=== PATIENT | female | born 1960 | race African-American/Black ===

== ENCOUNTER 2021-12-16 12:27 | Emergency (ER) | payer OTHER ==
[~2021-12-16] VITALS: Ht 149.9 cm; Wt 54.0 kg
[2021-12-16] MEDS ORDERED: ACETAMINOPHEN 325MG TABLET PO ONE (12:45)
[2021-12-16 13:32] VITALS: BP 149/67
== END 2021-12-16 13:34 | disposition home or self-care (01) ==
LOC: ER 12:27
DX: I10 Essential (primary) hypertension (principal); Z91.14 Patient's other noncompliance with medication regimen
CPT/HCPCS: 99282

== ENCOUNTER 2023-01-30 10:29 | Emergency (ER) | payer OTHER ==
[~2023-01-30] VITALS: Ht 147.3 cm; Wt 55.0 kg
[2023-01-30] MEDS ORDERED: IBUPROFEN 400MG TABLET PO ONE (13:15)
[2023-01-30] MEDS ORDERED: ACETAMINOPHEN 325MG TABLET PO ONE (13:15)
[2023-01-30] MEDS ORDERED: LIDOCAINE 5% PATCH TOP SCH (13:15)
[2023-01-30 13:35] LABS: CLARITY URINE CLOUDY (CLEAR); COLOR URINE DARK YELLOW (YELLOW); KETONES URINE TRACE (NEGATIVE); LEUKOCYTE ESTERASE URINE TRACE (NEGATIVE); NITRITE URINE NEGATIVE (NEGATIVE); OCCULT BLOOD URINE NEGATIVE (NEGATIVE); PH URINE 5.5 (4.5-8.0); PROTEIN URINE TRACE (NEGATIVE); SPECIFIC GRAVITY URINE 1.024 (1.005-1.030); UROBILINOGEN URINE >8.0 E.U./dL (0.2-1.0)
[2023-01-30 14:50] LABS: CHLORIDE 114 mEq/L (98-107)
[2023-01-30 16:05] LABS: BASOPHILS % 0.5 % (0.0-2.0); EOSINOPHILS % 0.9 % (0.0-5.0); HEMATOCRIT. 39.6 % (36.0-48.0); HEMOGLOBIN. 13.3 g/dL (12.0-16.0); LYMPHOCYTES % 22.2 % (20.0-50.0); MEAN CORPUSCULAR HEMOGLOBIN 31.3 pg (28.0-32.0); MEAN CORPUSCULAR VOLUME 93.2 fL (81.0-99.0); MEAN PLATELET VOLUME 9.2 fl (7.4-10.4); MONOCYTES % 10.9 % (2.0-8.0); NEUTROPHILS % 65.5 % (40.0-76.0); PLATELET 140 x1000/uL (130-400); RED BLOOD CELL COUNT 4.25 mill/uL (4.2-5.4); RED CELL DISTRIBUTION WIDTH 13.9 % (11.6-14.6)
[2023-01-30] MEDS ORDERED: DEXT 5%/0.9% NACL 1,000 ML IV SCH (16:45)
[2023-01-30 17:19] VITALS: BP 148/53
[2023-01-30] MEDS ORDERED: ONDA4TAB50 MT (18:44)
[2023-01-30] MEDS ORDERED: ACET-2708 MT (18:44)
== END 2023-01-30 18:55 | disposition home or self-care (01) ==
LOC: ER 10:29
DX: M54.59 Other low back pain (principal); R10.9 Unspecified abdominal pain; I10 Essential (primary) hypertension; K83.8 Other specified diseases of biliary tract
CPT/HCPCS: 36415; 74181; 76705; 80053; 81003; 82977; 83690; 85025; 99284; Z7610

== ENCOUNTER 2024-11-09 10:56 | Emergency (ER) | payer MEDICAID, OTHER ==
[~2024-11-09] VITALS: Ht 144.8 cm; Wt 56.0 kg
[~2024-11-09 10:56] MED LIST: ACET-2708 MT; ONDA4TAB50 MT
[2024-11-09 11:12] VITALS: O2SAT 98
[2024-11-09] MEDS ORDERED: ACET-2708 MT (14:18)
[2024-11-09] MEDS: ACETAMINOPHEN 325MG TABLET ONE (14:35)
[2024-11-09] MEDS: ACETAMINOPHEN 325MG TABLET PO ONE (14:40)
[2024-11-09 14:42] VITALS: BP 122/58; PULSE 84; RESP 16; TEMP 36.83628; O2SAT 98
== END 2024-11-09 14:43 | disposition home or self-care (01) ==
LOC: ER 10:56
DX: M25.531 Pain in right wrist (principal)
CPT/HCPCS: 73030; 73110; 99284; Z7610; A4565

== ENCOUNTER 2025-02-22 10:57 | Emergency (ER) | payer MEDICAID, OTHER ==
[~2025-02-22] VITALS: Ht 147.3 cm; Wt 56.0 kg
[2025-02-22] MEDS: DEXAMETHASONE 4MG TABLET PO ONE (12:54)
[2025-02-22] MEDS: IPRATROPIUM BROMIDE (0.02%) 0.5MG/2.5ML NEB HHN STA (13:00)
[2025-02-22] MEDS: ALBUTEROL (0.083%) 2.5MG/3ML NEB HHN STA (13:00)
[2025-02-22 13:03] VITALS: PULSE 75; RESP 16; O2SAT 98
[2025-02-22] MEDS ORDERED: BENZ100C86 MT (14:22)
[2025-02-22] MEDS ORDERED: ALBU18HF2 IH (14:22)
[2025-02-22 14:51] VITALS: BP 135/66; PULSE 87; RESP 18; TEMP 36.7; O2SAT 98
== END 2025-02-22 14:53 | disposition home or self-care (01) ==
LOC: ER 10:57
DX: J06.9 Acute upper respiratory infection, unspecified (principal); B97.89 Other viral agents as the cause of diseases classified elsewhere; I10 Essential (primary) hypertension; Z20.822 Contact with and (suspected) exposure to COVID-19; Z79.899 Other long term (current) drug therapy; Z98.890 Other specified postprocedural states
CPT/HCPCS: 71045; 94640; 99284; 87426; J8540; Z7610 ×3; 94070